=== PATIENT | male | born 1940 | race Caucasian/White ===

== ENCOUNTER → 2019-12-20 | Outpatient (CLI) | payer OTHER, BC ==
[~2019-12-20] MED LIST: CARBIDOPA-LEVO1 EA14 PO; HYDROCODON-ACE1 EAC7 PO; KEPPRA XR750 MG PO; PROTONIX40 M2 PO; SYNTHROID25 MCG PO; VITAMIN B-121000 MC2 SUBLING; VITAMIN D-40010 MCG PO
== END ==
LOC: LAB 08:03
PROVIDERS: ATTEND Specialist
DX: Z01.812 Encounter for preprocedural laboratory examination (principal); Z20.828 Contact with and (suspected) exposure to other viral communicable diseases

== ENCOUNTER → 2019-12-25 | Outpatient (CLI) | payer OTHER, BC ==
[~2019-12-25] VITALS: Ht 180.3 cm; Wt 56.7 kg
--- NOTE | 2019-12-26 12:53 | P ---
[facility] [place] [address] PROCEDURE REPORT Name: CHOLO STEPHENS Room #: REG Amanda Galo#: [id number] Admission: 12/25/19 Attend Phys: Shan Martinez Discharge: Date of : 38 Report #: [id number] THIS REPORT FOR: cc: Dionte Clement MD, Mark S. MD McElhinney, Christian C. MD ~ CC: Shan Clement MD DATE OF SERVICE: 12/25/2019 PROCEDURE PERFORMED: Upper endoscopy with biopsies and esophageal dilation. 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 He underwent surgical resection, chemotherapy and radiation therapy. He has been having progressive dysphagia over the last few months, both to solids and liquids. Plan is for EGD with possible dilation. DESCRIPTION OF PROCEDURE: The risks and benefits of the procedure were explained to the patient, those risks including but not limited to bleeding, perforation and the risk of sedation. He understood these risks and gave informed consent. Sedation was given using propofol per Anesthesia. Next, using a standard Olympus upper endoscope, the scope was placed in the patient's mouth and advanced under direct vision through the esophagus, stomach and into the second portion of the duodenum. In the oropharynx and the very proximal esophagus, there appears to be some scarring, likely from previous radiation. The scope passed through this area without difficulty. The mid and distal esophagus were normal. There was a mild gastritis noted in the gastric body. Biopsies were obtained to rule out H. pylori, otherwise normal. The pylorus was normal and patent. The duodenal bulb, first and second portion were all normal. The scope was then brought back up into the patient's stomach and a Savary guidewire was inserted through the scope, leaving the guidewire in place as the scope was then withdrawn. Next, a 48-Tuvaluan followed by a 54-Tuvaluan Savary dilation of the esophagus was performed without difficulty. The wire and dilator were removed. The scope was reintroduced into the patient's esophagus. There was no evidence of mucosal tear after dilation. The scope was then withdrawn and the procedure terminated. The patient tolerated the procedure well. IMPRESSION: 1. Scarring, oropharynx, very proximal esophagus. 2. Mild gastritis. 3. Otherwise, normal upper endoscopy. [address] [address] PROCEDURE REPORT Name: KATCHOLOANAND MESSINA Room #: REG CLI [facility]#: [id number] Admission: 12/25/19 Attend Phys: Shan Martinez Discharge: Date of : 38 Report #: [id number] RECOMMENDATIONS: 1. Observe the patient post-dilation. 2. If dysphagia persists, consider speech path evaluation with possible video swallow. Thank you for allowing me to participate in his care. <ELECTRONICALLY SIGNED> By: Shan Lopez MD 12/26/19 1253 1148 1331 Shan Lopez MD /nt
--- NOTE | 2019-12-27 17:07 | PATH ---
[facility] [address] [place] [address] PATHOLOGY RPT PROCEDURE Name: RICHIE STEPHENS Room #: REG DEMI Huitron.#: [id number] Admission: 12/25/19 Date of : 38 Discharge: Report #: [id number] Path Case #: [id number] [facility] Accession Number: [id number] . 01 Material submitted: . stomach - BX OF GASTRITIS . 01 Clinical history: . R/O H PYLORI, POSS PEG TUBE INSERT, DYSPHAGIA . 02 Diagnosis: Gastric mucosa, gastritis, endoscopic biopsy: - Helicobacter pylori-induced moderate active gastritis. - Negative for intestinal metaplasia, atrophy or dysplasia. - Moderate number of Helicobacter pylori organisms present on the properly-controlled immunohistochemical stain. . (IUV:mml; 12/27/2019) QLM 12/27/2019 1305 Local . 02 Electronically signed: . Tamiko Esparza MD, Pathologist NPI- [id number] . 01 Gross description: . The specimen is received in formalin, labeled "Richie Stephens BX of gastritis" and consists of multiple fragments of liu tissue measuring 0.8 x 0.6 x 0.3 cm in aggregate which are entirely submitted in A1. (SDY; 12/26/2019) SYU/SYU 12/26/2019 1548 Local . 02 Pathologist provided ICD-10: K29.60, B96.81 . 02 CPT . 384474, [id number] Specimen Comment: A courtesy copy of this report has been sent to [phone] Specimen Comment: [phone] Specimen Comment: Report sent to / DR NEFF Performed at: [address] [place] [id number] [id number] MD Alphonso Cruz MD Phone: [phone] Performed at: [address] [id number] [facility] [address] [place] [address] PATHOLOGY RPT PROCEDURE Name: RICHIE STEPHENS Room #: REG DEMI Rosenthal#: [id number] Admission: 12/25/19 Date of : 38 Discharge: Report #: [id number] Path Case #: [id number] MD Tamiko Esparza MD Phone: [phone]
== END | disposition home or self-care (01) ==
LOC: GI 09:03
PROVIDERS: ATTEND Specialist
DX: R13.10 Dysphagia, unspecified (principal); K29.60 Other gastritis without bleeding; B96.81 Helicobacter pylori [H. pylori] as the cause of diseases classified elsewhere; G20 Parkinson's disease; Z98.890 Other specified postprocedural states; Z79.899 Other long term (current) drug therapy; Z85.818 Personal history of malignant neoplasm of other sites of lip, oral cavity, and pharynx; Z85.828 Personal history of other malignant neoplasm of skin; Z98.41 Cataract extraction status, right eye; Z98.42 Cataract extraction status, left eye
CPT/HCPCS: 62110; 62900

== ENCOUNTER → 2020-07-16 | Outpatient (CLI) | payer OTHER | LOC: CAT 08:32 | DX: Z13.6 Encounter for screening for cardiovascular disorders (principal); I25.10 Atherosclerotic heart disease of native coronary artery without angina pectoris; E78.00 Pure hypercholesterolemia, unspecified ==